=== PATIENT | male | born 1995 | race Caucasian/White ===

== ENCOUNTER 2017-08-31 07:39 | Emergency (ER) | payer OTHER ==
[2017-08-31] MEDS ORDERED: Dexamethasone 4 mg/ml Vial ONE (09:12)
== END 2017-08-31 09:43 | disposition home or self-care (01) ==
LOC: ERS 07:39
DX: J11.1 Influenza due to unidentified influenza virus with other respiratory manifestations (principal); J45.909 Unspecified asthma, uncomplicated; F41.9 Anxiety disorder, unspecified; F84.0 Autistic disorder; F17.210 Nicotine dependence, cigarettes, uncomplicated
CPT/HCPCS: 87081; 87430; 87804; 99406; J1100

== ENCOUNTER 2017-12-22 12:03 | Emergency (ER) | payer OTHER ==
[2017-12-22] MEDS ORDERED: predniSONE 20 MG TAB ONE (12:27)
--- NOTE | 2017-12-22 12:49 | RAD ---
CHEST TWO VIEWS: History: Cough, wheezing x 1 month. Comparison: 12-24-14 FINDINGS: Normal cardiac silhouette. The pulmonary vessels and hilum are normal. No consolidation or mass. No p neumothorax or osseous abnormalities. IMPRESSION: No acute cardiopulmonary process. POS: [facility]
== END 2017-12-22 13:31 | disposition home or self-care (01) ==
LOC: ERS 12:03
DX: J45.901 Unspecified asthma with (acute) exacerbation (principal); F41.9 Anxiety disorder, unspecified; F84.0 Autistic disorder; F98.8 Other specified behavioral and emotional disorders with onset usually occurring in childhood and adolescence; F17.210 Nicotine dependence, cigarettes, uncomplicated; Z71.6 Tobacco abuse counseling
CPT/HCPCS: 71046; 94640; 99406; J7506; J7620

== ENCOUNTER 2018-04-19 00:14 | Emergency (ER) | payer OTHER | END 2018-04-19 00:53 | disposition home or self-care (01) | LOC: ERS 00:14 | DX: S61.211A Laceration without foreign body of left index finger without damage to nail, initial encounter (principal); J45.909 Unspecified asthma, uncomplicated; F98.8 Other specified behavioral and emotional disorders with onset usually occurring in childhood and adolescence; F41.9 Anxiety disorder, unspecified; F84.0 Autistic disorder; F17.210 Nicotine dependence, cigarettes, uncomplicated; Z71.6 Tobacco abuse counseling; W26.0XXA Contact with knife, initial encounter | CPT/HCPCS: 99406 ==

== ENCOUNTER 2018-05-22 18:21 | Emergency (ER) | payer OTHER ==
[2018-05-22] MEDS ORDERED: Ketorolac Tromethamine 60 MG/2 ML VIAL ONE (18:40)
== END 2018-05-22 19:10 | disposition home or self-care (01) ==
LOC: ERS 18:21
DX: K05.10 Chronic gingivitis, plaque induced (principal); F41.9 Anxiety disorder, unspecified; F98.8 Other specified behavioral and emotional disorders with onset usually occurring in childhood and adolescence; F84.0 Autistic disorder; F17.210 Nicotine dependence, cigarettes, uncomplicated; J45.909 Unspecified asthma, uncomplicated; Z79.891 Long term (current) use of opiate analgesic
CPT/HCPCS: J1885

== ENCOUNTER 2018-05-23 13:03 | Emergency (ER) | payer OTHER ==
[2018-05-23 13:50] LABS: #Eosinphils 0.2 thou/uL (0.0-0.7); #Lymphocytes 1.9 thou/uL (1.20-3.40); #Monocytes 0.6 thou/uL (0.11-0.59); #Neutrophils 6.3 thou/uL (1.40-6.50); %Basophils 0.4 % (0.0-1.0); %Eosinophils 1.7 % (0.0-10.0); %Lymphocytes 20.9 % (21.0-51.0); %Monocytes 6.9 % (0.0-10.0); %Neutrophils 70.1 % (42.0-75.0); Hemoglobin 13.8 g/dL (14.0-18.0); Mean Corpuscular HGB CONC 33.3 g/dL (32.0-36.0); Mean Corpuscular Hemoglobin 31.6 pg (27.0-31.0); Mean Corpuscular Volume 94.8 fL (78.0-98.0); Mean Platelet Volume 7.5 fL (7.4-10.4); Platelet Count 214 thou/uL (130-400); RBC Distribution Width 12.1 % (11.5-14.5); Red Blood Cell (RBC) Count 4.36 mill/uL (4.70-6.10); White Blood Cell (WBC) Count 8.9 thou/uL (4.8-10.8)
[2018-05-23] MEDS ORDERED: Ondansetron HCl/PF 4 MG/2 ML Vial ONE (15:08)
[2018-05-23] MEDS ORDERED: ISOVUE-370 76%-LOCM 1 ML ONE (15:17)
[2018-05-23 15:18] LABS: Anion Gap 13 mmol/L (10-20); BUN (Urea Nitrogen) 7 mg/dL (8.9-20.6); Calc. Creatinine Clearance 0 mL/min (70-130); Calcium 9.2 mg/dL (7.8-10.44); Carbon Dioxide 26 mmol/L (22-29); Chloride 105 mmol/L (98-107); Estimated GFR-MDRD Greater than 90; Glucose 85 mg/dL (70-105); Potassium 3.7 mmol/L (3.5-5.1); Sodium 140 mmol/L (136-145)
--- NOTE | 2018-05-23 15:57 | CT ---
CT HEAD NONCONTRAST: Indication: Pain, edema, infection. FINDINGS: There is no acute intracranial hemorrhage, mass effect, midline shift or ventriculomegaly. Reference to the separately dictated facial for CT for details regarding abnormal soft tissues of the face. IMPRESSION: No acute intracranial abnormalities. POS: [facility]
--- NOTE | 2018-05-23 16:04 | CT ---
CT OF FACE WITH CONTRAST: Date: 05/23/18 INDICATION: Pain, edema. FINDINGS: There is prominent soft tissue thickening and increased density of the perioral and nasolabial soft t issues, more notable on the right. There is a focal area of reduced density at the right nasolabial f old without well-defined borders. This may relate to an area of inflammatory edema/phlegmon. A well-f ormed drainable abscess is not visualized in this region. There are areas of periapical lucency of th e right central/paracentral maxillary incisors, which may provide the source for overlying subcutaneo us inflammation. Immediately overlying the lucency of the right paracentral incisor, there is a thin region of decreased density that measures 11.0 mm transverse x 2.0 mm AP, indicating extension of per iapical abscess beyond the confines of the alveolar ridge of the maxilla. There is no fluid level of the visualized paranasal sinuses. The orbital contents are unremarkable. IMPRESSION: Prominent inflammatory skin thickening and subcutaneous inflammation of the face, at and to the right of midline, primarily centered at the right nasolabial fold and perioral soft tissues with underlyin g phlegmon. There is deep soft tissue edema overlying periapical abscess formation of the right centr al and paracentral maxillary incisors, which likely relates to extension of periodontal abscess into the deep subcutaneous tissues. Recommend dental consultation for further care. POS: [facility]
[2018-05-23] MEDS ORDERED: Clindamycin 150 MG CAP ONE (16:38)
== END 2018-05-23 16:42 | disposition home or self-care (01) ==
LOC: ERS 13:03
DX: K04.7 Periapical abscess without sinus (principal); J45.909 Unspecified asthma, uncomplicated; F98.8 Other specified behavioral and emotional disorders with onset usually occurring in childhood and adolescence; F41.9 Anxiety disorder, unspecified; F84.0 Autistic disorder; F17.210 Nicotine dependence, cigarettes, uncomplicated; Z79.891 Long term (current) use of opiate analgesic; Z79.899 Other long term (current) drug therapy
CPT/HCPCS: 36415; 70450; 70487; 80048; 85025; 96361; 96372; 96374; 96375; J1885; J2270; J2405

== ENCOUNTER 2018-08-26 15:15 | Outpatient (CLI) | payer MEDICAID ==
--- NOTE | 2018-08-26 16:18 | RAD ---
EXAM: CHEST TWO VIEWS: History: Cough. Physician hears something in his chest. Comparison: 12-22-17 FINDINGS: Heart size is normal. The lungs are clear. No confluent pneumonia, overt edema or pleural effusion. IMPRESSION: No acute intrathoracic disease. POS: [facility]
--- NOTE | 2018-08-26 16:35 | RAD ---
FOUR VIEWS CERVICAL SPINE INCLUDING AP, LATERAL, OPEN MOUTH ODONTOID AND SUBMENTAL VERTEX VIEWS CERVI DILMA SPINE. 08/26/18 HISTORY: Patient with history of neck pain. Four views cervical spine demonstrates cervical spine to be unremarkable. No evidence of fracture, meade bluxations or bony lesions seen. IMPRESSION: Normal four views cervical spine. POS: [facility]
--- NOTE | 2018-08-26 16:35 | RAD ---
THORACIC SPINE FOUR VIEWS: AP, coned-down, lateral, and swimmer's views obtained. FINDINGS: Images demonstrate areas of compression fractures involving the T11 and T12 vertebral levels. These a ppear to be old. IMPRESSION: T11 and T12 old compression fractures. The rest of the thoracic spine is grossly unremarkable. POS: [facility]
== END 2018-08-26 15:16 | disposition home or self-care (01) ==
LOC: SCSRAD 15:15
PROVIDERS: ATTEND Family Medicine
DX: M54.2 Cervicalgia (principal); M54.6 Pain in thoracic spine; R05 Cough; Z87.81 Personal history of (healed) traumatic fracture
CPT/HCPCS: 71046; 72040; 72072